=== PATIENT | male | born 1950 | race Caucasian/White ===

== ENCOUNTER 2017-04-09 11:10 | Emergency (ER) | payer MEDICARE ==
[2013-10-25 23:28] VITALS: BP 121/67
[~2017-04-09] VITALS: Ht 182.9 cm; Wt 87.5 kg
--- NOTE | 2017-04-09 11:52 | RAD ---
Indication: Injury to the right hand with pain and swelling. Time of exam 11:38 AM 3 views of the right hand were obtained. There is an acute fracture of the distal fifth metacarpal. There is volar angulation of the distal fracture fragment. No displacement is seen. Remaining metacarpals are intact. The phalanges are unremarkable. Impression: Mildly angulated distal fifth metacarpal fracture.
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
== END 2017-04-09 12:25 | disposition home or self-care (01) ==
LOC: ER 11:10
DX: S62.339A Displaced fracture of neck of unspecified metacarpal bone, initial encounter for closed fracture (principal); W22.8XXA Striking against or struck by other objects, initial encounter; Y93.89 Activity, other specified; Y99.8 Other external cause status; Y92.89 Other specified places as the place of occurrence of the external cause
CPT/HCPCS: 29125; 73130; 99284-25

== ENCOUNTER 2018-03-09 09:59 | Emergency (ER) | payer MEDICARE ==
[~2018-03-09] VITALS: Ht 185.4 cm; Wt 90.7 kg
[2018-03-09 10:43] VITALS: BP 134/78
[2018-03-09] MEDS ORDERED: HYDR-3135 PO (10:58)
[2018-03-09] MEDS ORDERED: AMOX500C PO (10:58)
--- NOTE | 2018-03-09 11:01 | PHYS DOC ---
Past Medical History Past Medical History: Arthritis, GERD, Other Additional Past Medical Histor: herniated disc,sciatica, CROHNS Past Surgical History: No Surgical History Alcohol Use: None Drug Use: None Adult General Chief Complaint Chief Complaint: PAIN CONTROL [facility] HPI Patient is a 68 year old [f__sex] who presents with [] Review of Systems Review of Systems Constitutional: Denies fever or chills [] Eyes: Denies change in visual acuity, redness, or eye pain [] HENT: Denies nasal congestion or sore throat [] Respiratory: Denies cough or shortness of breath [] Cardiovascular: No additional information not addressed in HPI [] GI: Denies abdominal pain, nausea, vomiting, bloody stools or diarrhea [] : Denies dysuria or hematuria [] Musculoskeletal: Denies back pain or joint pain [] Integument: Denies rash or skin lesions [] Neurologic: Denies headache, focal weakness or sensory changes [] Endocrine: Denies polyuria or polydipsia [] All other systems were reviewed and found to be within normal limits, except as documented in this note. Allergies Allergies Allergies Coded Allergies Type Severity Reaction Last Updated Verified No Known Drug Allergies 10/25/13 No Physical Exam Physical Exam Constitutional: Well developed, well nourished, no acute distress, non-toxic appearance. [] HENT: Normocephalic, atraumatic, bilateral external ears normal, oropharynx moist, no oral exudates, nose normal. [] Eyes: PERRLA, EOMI, conjunctiva normal, no discharge. [] Neck: Normal range of motion, no tenderness, supple, no stridor. [] Cardiovascular:Heart rate regular rhythm, no murmur [] Lungs & Thorax: Bilateral breath sounds clear to auscultation [] Abdomen: Bowel sounds normal, soft, no tenderness, no masses, no pulsatile masses. [] Skin: Warm, dry, no erythema, no rash. [] Back: No tenderness, no CVA tenderness. [] Extremities: No tenderness, no cyanosis, no clubbing, ROM intact, no edema. [] Neurologic: Alert and oriented X 3, normal motor function, normal sensory function, no focal deficits noted. [] Psychologic: Affect normal, judgement normal, mood normal. [] Current Patient Data Vital Signs Vital Signs Date Time Temp Pulse Resp B/P (MAP) Pulse Ox O2 Delivery O2 Flow Rate FiO2 03/09/18 10:43 98.2 88 16 134/78 (96) 97 Room Air 98.2 EKG EKG [] Radiology/Procedures Radiology/Procedures [] Course & Med Decision Making Course & Med Decision Making Pertinent Labs and Imaging studies reviewed. (See chart for details) [] Dragon Disclaimer Dragon Disclaimer This electronic medical record was generated, in whole or in part, using a voice recognition dictation system. Departure Departure Impression: Primary Impression: Medication refill Disposition: HOME, SELF-CARE Condition: STABLE Referrals: NO PCP (PCP) Patient Instructions: Medication Refill, Emergency Department Additional Instructions: Take the medication as directed. Follow-up with a new primary care provider for further evaluation of your healthcare needs. Take the antibiotic for your tooth as directed. Follow-up with a dentist at an earliest available appointment. Scripts Amoxicillin (AMOXICILLIN) 500 Mg Capsule 2 CAP PO BID for infection, #40 CAP Prov: MARY LOZANO APRN 03/09/18 Hydrocodone/Apap 10-325 (NORCO 10-325 TABLET) 1 Each Tablet 1 TAB PO PRN Q6HRS PRN for PAIN, #20 TAB 0 Refills Prov: MARY LOZANO APRN 03/09/18 MARY LOZANO APRN Mar 09, 2018 11:01
== END 2018-03-09 11:36 | disposition home or self-care (01) ==
LOC: ER 09:59
DX: G89.29 Other chronic pain (principal); M54.89 Other dorsalgia; Z76.0 Encounter for issue of repeat prescription
CPT/HCPCS: 99283

== ENCOUNTER 2019-10-03 14:45 | Emergency (ER) | payer MEDICARE ==
[~2019-10-03] VITALS: Ht 182.9 cm; Wt 100.0 kg
[~2019-10-03 14:45] MED LIST: AMOX500C PO; HYDR-3135 PO
[2019-10-03 15:01] VITALS: BP 177/80
[2019-10-03] MEDS ORDERED: HYDR-3135 PO (15:04)
--- NOTE | 2019-10-03 15:04 | PHYS DOC ---
Past Medical History Past Medical History: Arthritis, GERD, Other Additional Past Medical Histor: herniated disc,sciatica, CROHNS Past Surgical History: No Surgical History Smoking Status: Current Every Day Smoker Alcohol Use: None Drug Use: None General Adult EDM: Chief Complaint: MEDICATION REFILL HPI: HPI: Patient is a 69 year old male presents with request for refill of his chronic pain medication of hydrocodone 10/325mg. Reports he previously had a painter barrel and PCP but the pain specialist will no longer see him and his PCP has since retired. Reports he has chronic low back pain primarily to the right side with sciatic component radiating down his right leg. Denies recent trauma. Denies loss of bowel or bladder. Denies fever chills. Denies dysuria. Review of Systems: Review of Systems: Constitutional: Denies fever or chills Eyes: Denies redness or eye pain HENT: Denies nasal congestion or sore throat Respiratory: Denies cough or shortness of breath Cardiovascular: Denies chest pain or palpitations GI: Denies abdominal pain, nausea, or vomiting : Denies dysuria or hematuria Musculoskeletal: Reports chronic back pain with radiation down right leg Integument: Denies rash or skin lesions Neurologic: Denies headache, focal weakness or sensory changes Complete systems were reviewed and found to be within normal limits, except as documented in this note. Allergies: Allergies: Allergies Coded Allergies Type Severity Reaction Last Updated Verified No Known Drug Allergies 10/25/13 No Physical Exam: PE: Constitutional: Well developed, well nourished, no acute distress, non-toxic appearance HENT: Normocephalic, atraumatic, cauliflower ear on right Eyes: Conjunctiva normal, no discharge Neck: Normal range of motion, no tenderness Lungs & Thorax: No respiratory distress, equal chest rise and fall Abdomen: Soft, no tenderness Skin: Warm, dry, no erythema, no rash Back: No midline tenderness, right lumbar paraspinal tenderness on palpation, no CVA tenderness Extremities: No tenderness, ROM intact, no edema Neurologic: Alert and oriented X 3, no focal deficits noted Psychologic: Affect normal, judgment normal EKG: EKG: [] Radiology/Procedures: Radiology/Procedures: [] Course & Med Decision Making: Course & Med Decision Making Patient with past medical history of chronic back pain with sciatica down right leg presents with request for refill of his chronic pain medication of [place] 10/325 mg. Patient reports he no longer has a painter barrel and his family physician has since retired. [facility] reports obtained. Last Rx for [place] 10/325mg was 08/19/19 for which patient received 120 tabs (30 day supply). Patient reports he no longer has a pain contract/pain management physician. Patient advised we would be able to give him 10 tabs as an one time courtesy. Patient advised he would not be provided further refills in the future. Pain management and PCP referral paperwork provided. Patient stable for discharge with outpatient follow-up with PCP/pain management. Discussed findings and plan with patient, who acknowledges understanding and agreement. Dragon Disclaimer: [email or web address] Disclaimer: This electronic medical record was generated, in whole or in part, using a voice recognition dictation system. Departure Departure Impression: Primary Impression: Chronic pain Qualified Codes: G89.29 - Other chronic pain Additional Impression: Medication refill Disposition: HOME, SELF-CARE Condition: STABLE Referrals: UNKNOWN PCP NAME (PCP) MIKI MCCULLOUGH MD Patient Instructions: Chronic Back Pain, Medication Refill, Emergency Department Scripts Hydrocodone/Apap 10-325 (NORCO 10-325 TABLET) 1 Each Tablet 0.5-1 TAB PO PRN Q6HRS PRN for PAIN, #10 TAB 0 Refills Prov: RUTH CACERES DO 10/03/19 Justicifation of Admission Dx: Justifications for Admission: Justification of Admission Dx: N/A RUTH CACERES DO Oct 03, 2019 15:04
== END 2019-10-03 15:14 | disposition home or self-care (01) ==
LOC: ER 14:45
DX: G89.29 Other chronic pain (principal); M54.5 Low back pain; M19.90 Unspecified osteoarthritis, unspecified site; K21.9 Gastro-esophageal reflux disease without esophagitis; F17.200 Nicotine dependence, unspecified, uncomplicated; Z76.0 Encounter for issue of repeat prescription
CPT/HCPCS: 99281

== ENCOUNTER → 2019-10-10 | Outpatient (CLI) | payer MEDICARE ==
[2019-10-03 15:01] VITALS: BP 177/80
--- NOTE | 2019-10-10 12:55 | KCIC ---
EXAM: LUMBAR SPINE MIN 4V 10/10/2019 12:00 AM CLINICAL INDICATION:Lower back pain with right lower extremity radiculopathy COMPARISON:None TECHNIQUE:AP, lateral, and bilateral oblique, and coned-down lateral views of the lumbar spine. FINDINGS: There are 5 nonrib-bearing lumbar vertebral bodies. There is a compression fracture with mild height loss of the superior endplate of L2. Alignment is normal. Moderate to severe disc space narrowing with endplate sclerosis and small osteophytes at L4-L5 and L5-S1. Mild disc space narrowing L1-L2. Moderate lower lumbar facet arthrosis. IMPRESSION: 1. L2 compression fracture with mild height loss. 2. Moderate to severe degenerative disc disease at L4-L5 and L5-S1. 3. Lower lumbar facet arthrosis. Electronically signed by: Nay Bishop MD (10/10/2019 12:52 PM) [id number]
== END | disposition home or self-care (01) ==
LOC: KCIC 09:56
PROVIDERS: ATTEND Family Medicine
DX: M51.37 Other intervertebral disc degeneration, lumbosacral region (principal); M48.56XA Collapsed vertebra, not elsewhere classified, lumbar region, initial encounter for fracture; M25.78 Osteophyte, vertebrae; M48.07 Spinal stenosis, lumbosacral region; G95.89 Other specified diseases of spinal cord
CPT/HCPCS: 72110

== ENCOUNTER → 2019-11-01 13:16 | Emergency (ER) | payer MEDICARE ==
[2019-10-03 15:01] VITALS: BP 177/80
== END | disposition left against medical advice (07) ==
LOC: ER 13:16
DX: M54.9 Dorsalgia, unspecified (principal); Z53.21 Procedure and treatment not carried out due to patient leaving prior to being seen by health care provider

== ENCOUNTER → 2019-11-03 | Outpatient (CLI) | payer MEDICARE ==
--- NOTE | 2019-11-03 14:12 | KCIC ---
MRI Lumbar Spine without contrast History: Lumbar back pain into the right lower extremity, worsening pain Technique: Multiplanar, multi sequential noncontrast MR imaging was performed of the lumbar spine. Comparison: None Findings: There is superior L2 compression fracture without osseous retropulsion, some associated edema signified by STIR hyperintense and T1 hypointense signal. There is advanced L4-5 degenerative disc disease, to a lesser degree at L5-S1. Conus terminates at L1. There is prominent L5-S1 and very minimal L4-5 endplate edema more likely to be reactive/degenerative in etiology, no fluid in the intervertebral disc spaces. L1-L2: There is moderate facet degenerative change and mild to moderate buckling of the ligamentum flavum. Neural foramina and spinal canal are adequate. L2-L3: There is mild buckling of the ligamentum flavum and mild to moderate facet degenerative change. Spinal canal and neural foramina are adequate. L3-L4: There is mild buckling of the ligamentum flavum and facet degenerative change. There is shallow protrusion in the inferior right neural foramen and proximal extraforaminal region, very mild narrowing of the inferior right neural foramen. There is also mild narrowing of the inferior left neural foramen by minimal disc osteophyte complex and facet. Spinal canal is overall adequate. L4-L5: There is minimal disc osteophyte complex. There is mild to moderate facet degenerative change and mild buckling of the ligamentum flavum. There is mild to moderate narrowing of the far lateral recesses bilaterally, central canal overall adequate. There is moderate to severe right and mild left neural foramina compromise with contact of the exiting L4 nerve roots bilaterally. Disc osteophyte complex and facet degenerative change contributes to neural foramina compromise. Disc osteophyte complex is also near the extraforaminal right L4 nerve root. L5-S1: There is bulge/broad protrusion slightly more eccentric to left lateral recess about 3 to 4 mm AP. There is contact and minimal posterior displacement descending left S1 nerve root in the left lateral recess, very mild left lateral recess stenosis. There is mild buckling of the ligamentum flavum. There is moderate facet hypertrophic change bilaterally. There is severe narrowing of the left neural foramen by facet and disc osteophyte complex, degree of contact of exiting left L5 nerve root. There is also moderate to severe narrowing of the right neural foramen greater from posteriorly by facet. Impression: 1. There is probably subacute superior L2 compression fracture with associated marrow edema, no osseous retropulsion. 2. There is advanced degenerative disc disease at L4-5 and to lesser degree at L5-S1. Endplate edema greatest at L5-S1 is probably reactive/degenerative in etiology. 3. There is [id number] narrowing of the far lateral recesses bilaterally at L4-5, minimal narrowing of the left lateral recess L5-S1. 4. There is neural foramina compromise as stated, more significant narrowing left greater than right at L5-S1 and on the right at L4-5. Electronically signed by: Jass Lazo MD (11/03/2019 2:09 PM) [id number]
== END | disposition home or self-care (01) ==
LOC: KCIC MRI 13:09
PROVIDERS: ATTEND Family Medicine
DX: M48.56XA Collapsed vertebra, not elsewhere classified, lumbar region, initial encounter for fracture (principal); M51.36 Other intervertebral disc degeneration, lumbar region; M51.26 Other intervertebral disc displacement, lumbar region; M25.78 Osteophyte, vertebrae; M48.07 Spinal stenosis, lumbosacral region
CPT/HCPCS: 72148

== ENCOUNTER → 2019-11-21 | Outpatient (CLI) | payer MEDICARE ==
[~2019-11-21] MED LIST changes: +ALPR0.5T PO; +OMEP20CA16 PO
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
== END | disposition home or self-care (01) ==
LOC: PNCL 10:31
PROVIDERS: ATTEND Anesthesiology
DX: M51.37 Other intervertebral disc degeneration, lumbosacral region (principal); M19.90 Unspecified osteoarthritis, unspecified site; F17.210 Nicotine dependence, cigarettes, uncomplicated; K50.90 Crohn's disease, unspecified, without complications; M79.661 Pain in right lower leg; Z80.51 Family history of malignant neoplasm of kidney; Z79.899 Other long term (current) drug therapy
CPT/HCPCS: G0463